=== PATIENT | female | born 1960 | race Caucasian/White ===

== ENCOUNTER 2020-04-22 12:33 | Outpatient (REF) | payer OTHER, SELFPAY | END 2020-04-22 12:34 | disposition home or self-care (01) | LOC: HO.HAP 12:33 | PROVIDERS: Visit Provider Internal Medicine | DX: H90.3 Sensorineural hearing loss, bilateral (principal); Z97.4 Presence of external hearing-aid | CPT/HCPCS: V5160; V5261; V5264 ==

== ENCOUNTER 2020-05-06 12:37 | Outpatient (REF) | payer OTHER, SELFPAY ==
--- NOTE | 2020-05-08 15:19 | MHC.AU.P13 ---
Hearing Instrument Follow-Up- Binaural Date of Visit: 05/06/20 Right Ear: Mid Level Project Manager: Phonak Model: FreeWavzjesus M70-AK Serial Number: [id number] Warranty: 07/09/2023 Battery Size: Rechargeable Type of Mold: Standard halina mold Left Ear: Mid Level Project Manager: Phonak Model: Bolero M70-AK Serial Number: [id number] Warranty: 07/09/2023 Battery Size: Rechargeable Type of Mold: Standard halina mold Follow-Up Summary: Hearing aid follow-up. Reviewed beto use and how to save programs. She notes that she hears too much background noise. Increased noise reduction in the automatic settings. and decreased gain by 3 dB from 250-750 Hz bilaterally. She reported comfortable sound quality and understanding of all topics covered. Recommendations: Recommendations: Hearing instrument maintenance in 6 months, or sooner if needed. Please contact our clinic with any questions or concerns. Diagnosis Code(s): Primary Diagnosis: H90.3 Bilateral Sensorineural Hearing Loss Services Performed: Assorted Hearing Aid Service: No Charge Visit Signature: Provider: Savannah De La Garza, [facility]
== END 2020-05-06 12:38 | disposition home or self-care (01) ==
LOC: HO.HAP 12:37
PROVIDERS: Visit Provider Internal Medicine
DX: Z13.89 Encounter for screening for other disorder (principal)
CPT/HCPCS: 92700

== ENCOUNTER 2024-11-22 09:59 | Outpatient (AMB) | payer OTHER, SELFPAY ==
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
[2024-11-22 10:38] VITALS: BP 114/70; PULSE 79; BMI 35.4
--- OUTSIDE RECORDS SUMMARY | 2024-11-22 11:05 | XMS_ITS | Encounter Summary ---
Author Organization [facility] Address [address] [place] [address] Care Team Providers Care Ex Chef Name Role Phone Anali Mccabe OILER AND GREASER Primary Care Provider [phone] Encounter Details Date Type Department Care Team (Late st Contact Info) Description 11/19/2024 6:30 AM EDT [facility] Home Care / [facility] Home Visit [facility] [address] [place] [phone] Tomasa Patel Social History Tobacco Use Types Packs/Day Years Used Date Smoking Tobacco: Never Smokeless Tobacco: Never Comments:Ex-smoker Alcohol Use Standard Drinks/Week Comments No 0 (1 standard drink = 0.6 oz pur e alcohol) Comments No Sex and Gender Information Value Date Recorded Sex Assigned at Not on file Legal Sex Female 6:14 PM EST Gender Identity Not on file Sexual Orientation Not on file documented as of this encounter Plan of Treatment Upcoming Encounters Date Type Department Care Team (Late st Contact Info) Description 11/23/2024 7:00 AM EDT P[facility] Home Care / PACE Home Visit Arianne [facility] [address] [place] [phone] Tomasa Patel 11/24/2024 6:00 AM EDT P[facility] Home Care / PACE Home Visit A[facility]ne [facility] [address] [place] [phone] Mendy Hodge 11/24/2024 10:00 AM EDT Office Visit [facility] [address] [place] [phone] Anali Mccabe, ROC[facility] [address] [address] 11/25/2024 6:30 AM EDT P[facility] Home Care / PACE Home Visit Arianne [facility] [address] [place] [phone] Feroz Horner 11/26/2024 6:30 AM EDT [facility] Home Care / PACE Home Visit [facility] [address] [place] [phone] Teodora Ricks 11/27/2024 9:00 AM EDT [facility] Home Care / PACE Home Visit [facility] [address] [place] [address] Nurse, Tomasa 11/28/2024 7:00 AM EDT [facility] Home Care / PACE Home Visit Arianne [facility] [address] [place] [phone] Nurse, Tomasa 11/29/2024 7:00 AM EDT [facility] Home Care / P[facility] Home Visit [facility]ne [facility] [address] [place] [phone] Nurse, Tomasa 11/30/2024 7:00 AM EDT [facility] Home [facility] / [facility] [address] [place] [phone] Nurse, Tomasa 12/01/2024 6:00 AM EDT [facility] Home [facility] / [facility] [address] [place] [phone] Mendy Hodge 12/02/2024 6:30 AM EDT [facility] Home [facility] [address] [place] [phone] Nurse, Tomasa 12/03/2024 6:30 AM EDT [facility] Home [facility] / [facility] [address] [place] [address] Nurse, Tomasa 12/04/2024 9:00 AM EDT [facility] Home [facility] / [facility] [address] [place] [phone] Nurse, Tomasa 12/05/2024 7:00 AM EDT [facility] Home [facility] / [facility] [address] [place] [phone] Nurse, Tomasa 12/06/2024 7:00 AM EDT [facility] Home [facility] / [facility] [address] [place] [phone] Nurse, Tomasa 12/07/2024 7:00 AM EDT [facility] Home [facility] / [facility] [address] [place] [phone] Nurse, Tomasa 12/08/2024 6:00 AM EDT [facility] Home [facility] / [facility] [address] [place] [phone] Mendy Hodge 12/09/2024 6:30 AM EDT [facility] Home [facility] / [facility] [address] [place] [phone] Feroz Horner 12/10/2024 6:30 AM EDT [facility] Home [facility] / [facility] [address] [place] [phone] Teodora Ricks 12/11/2024 9:00 AM EDT [facility] Home [facility] / [facility] [address] [place] [phone] Nurse, Tomasa 12/12/2024 7:00 AM EDT [facility] Home [facility] / [facility] [address] [place] [phone] Nurse, Tomasa 12/13/2024 7:00 AM EDT [facility] Home [facility] / [facility] [address] [place] [phone] Nurse, Tomasa 12/14/2024 7:00 AM EDT [facility] Home [facility] / [facility] [address] [place] [phone] Feroz Horner 12/15/2024 6:00 AM EDT [facility] Home [facility] / [facility] [place] [facility] [address] [place] [phone] Mendy Hodge 12/16/2024 6:30 AM EDT [facility] / [facility] [address] [place] [phone] Nurse, Tomasa 12/17/2024 6:30 AM EDT [facility] Home [facility] / [facility] [place] [facility] [address] [place] [phone] Nurse, Tomasa 12/18/2024 9:00 AM EDT P[facility] Home Care / [facility] [place] [facility] [address] [place] [phone] Nurse, Tomasa 12/19/2024 7:00 AM EDT [facility] Home [facility] / [facility] [address] [place] [phone] Nurse, Tomasa 12/20/2024 7:00 AM EDT [facility] Home [facility] / [facility] [address] [place] [phone] Nurse, Tomasa 12/20/2024 10:00 AM EDT Office Visit [facility] - [place] [address] [phone] Talia Ang NP [address] [address] 12/21/2024 7:00 AM EDT P[facility] Home Care / PACE Home Visit [facility] [address] [place] [phone] Nurse, Tomasa 12/22/2024 6:00 AM EDT P[facility] Home Care / P[facility] Home Visit [facility] [address] [place] [phone] Mendy Hodge 12/23/2024 6:30 AM EDT P[facility] Home Care / PACE Home Visit [facility] [address] [place] [phone] Feroz Horner 01/23/2025 11:00 AM EDT Appointment [facility] Ultrasound [address] [place] [address] 03/05/2025 11:00 AM EDT [facility]ACE External Visit [place]ne [place] [place] [address] [place] [phone] documented as of this encounter Visit Diagnoses Not on filedocumented in this encounter Care Teams Ex Chef Relationship Specialty Start Date End Date Anali Mccabe NP [address] [facility] [address] [place] [address] PCP - General Family Medicine 05/26/24 documented as of this encounter
--- OUTSIDE RECORDS SUMMARY | 2024-11-22 11:05 | XMS_ITS ---
Author Organization [facility] Address [address] [place] [address] Phone Care Team Providers Care Organization Development Consultant Name Role Phone Anali Mccabe ORDER CALLER Primary Care Provider [phone] Program of All-Inclusive Care for the Elderly Status:Enrolled (Active) Start date:06/18/2018 Enrollment date:06/18/2018 Related social drivers of health:Housing Instability, Financial Risk, Transportation, Social Isolation, Food Risk Related service episodes:[facility] (Active) Overview This episode will track PACE documentation. Case Team Name Relationship Phone Anali Mccabe ORDER CALLER Nurse Practitioner Mitzy Sadler Recreational Therapist Gi Austin RN Advertising Clerk uLanne Roach TELEVISION INSTALLER Radiosonde Operator Tien Ybarra RD Dietitian [place] PT Physical Therapist Zachery Pereira [place] Banquet Director Marcelino Davies LCSW Tiler Monse Rojas Tiler Brody Jarquin Spiritual Care Juani Bradford OT Occupational Therapist Laurie Palumbo RN Registered Nurse Madhuri Denis MD Primary Care Provider Continued Care and Services Coordination
--- OUTSIDE RECORDS SUMMARY | 2024-11-22 11:05 | XMS_ITS ---
Author Organization [facility] Address [address] [place] [address] Phone Care Team Providers Care Parcel Wrapper Name Role Phone Anali Mccabe MANAGER OF OPERATIONS Primary Care Provider [phone] [facility] Status:Enrolled (Active) Start date:09/16/2024 Related program episode:Program of [facility]-Inclusive Care for the Elderly (Active) Case Team Name Relationship Phone Anali Mccabe MANAGER OF OPERATIONS Nurse Practitioner(Responsibl e Staff) [phone] Continued Care and Services Coordination
--- OUTSIDE RECORDS SUMMARY | 2024-11-22 11:06 | XMS_ITS | Clinical Summary ---
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 10/25/2024 5:47 PM EDT [facility] Platelets 253 130 - 400 K/mcL LAB HEMETOLOGY METHOD 10/25/2024 5:47 PM EDT [facility] MPV 11.2(H) 7.0 - 11.0 FL LAB HEMETOLOGY METHOD 10/25/2024 5:47 PM EDT [facility] NRBC 0.0 <1.0 % LAB HEMETOLOGY METHOD 10/25/2024 5:47 PM [facility] NRBC Absolute 0.00 <0.10 K/mcL LAB HEMETOLOGY METHOD 10/25/2024 5:47 PM [facility] Neutrophils Relative 55.7 % LAB HEMETOLOGY METHOD 10/25/2024 5:47 PM [facility] Lymphocytes Relative 34.2 % LAB HEMETOLOGY METHOD 10/25/2024 5:47 PM [facility] Monocytes Relative 8.0 % LAB HEMETOLOGY METHOD 10/25/2024 5:47 PM [facility] Eosinophils Relative 1.4 % LAB HEMETOLOGY METHOD 10/25/2024 5:47 PM [facility] Basophils Relative 0.5 % LAB HEMETOLOGY METHOD 10/25/2024 5:47 PM [facility] Immature Granulocytes Relative 0.2 % LAB HEMETOLOGY METHOD 10/25/2024 5:47 PM [facility] Neutrophils Absolute 3.48 1.50 - 7.00 K/mcL LAB HEMETOLOGY METHOD 10/25/2024 5:47 PM [facility] Lymphocytes Absolute 2.14 1.00 - 5.00 K/mcL LAB HEMETOLOGY METHOD 10/25/2024 5:47 PM [facility] Monocytes Absolute 0.50 0.20 - 1.00 K/mcL LAB HEMETOLOGY METHOD 10/25/2024 5:47 PM [facility] Eosinophils Absolute 0.09 0.00 - 0.50 K/mcL LAB HEMETOLOGY METHOD 10/25/2024 5:47 PM [facility] Basophils Absolute 0.03 0.00 - 0.20 K/mcL LAB HEMETOLOGY METHOD 10/25/2024 5:47 PM [facility] Immature Granulocytes Absolute 0.01 0.00 - 0.03 K/mcL LAB HEMETOLOGY METHOD 10/25/2024 5:47 PM EDT [facility] Blood Venous blood specimen / Unknown Venipuncture / Unknown 10/25/2024 12:18 PM EDT 10/25/2024 12:18 PM EDT us Anali Mccabe RIGGING WORKER LAB BLOOD ORDERABLES Final Re sult [facility] [address] [place] [address], * Vitamin B3 (10/25/2024 12:18 PM EDT) Nicotinic Acid None Detected ng/mL 11/03/2024 11:32 AM EDT [facility] Comment: Reporting Limit: 10 ng/mL Synonym(s): Niacor(R); Niaspan(R); Slo-Niacin(R); Vitamin B3 Nicotinic acid occurs naturally in plants and animals and is also added to many foods as a vitamin supplement. Due to the large variability in the metabolism of nicotinic acid, the dosing preparation used (immediate-release vs. extended-release), and the mg doses used, the serum concentrations may range from less than 10 ng/mL to about [address]40 ng/mL. After oral administration of an immediate-release tablet, peak plasma concentrations are achieved in 30 to 60 min; after oral administration of an extended-release capsule, peak plasma concentrations occur in 4 to 5 hours. The plasma half-life of nicotinic acid is about 1 hour. In one study, fasting plasma concentrations were reported to be approximately 10 ng/mL. In another study it was reported that the administration of a single 1000 mg extended-release tablet resulted in mean nicotinic acid concentrations of less than 50 ng/mL. The administration of multiple oral doses of nicotinic acid (for a total of 2000 mg) resulted in the following mean peak nicotinic acid plasma concentrations: 25 mg every 10 min. for 80 doses (over 13 hours): 1100 ng/mL 50 mg every 10 min. for 40 doses (over 6.5 hours): 5400 ng/mL 100 mg every 10 min. for 20 doses (over 3 hours): 97142 ng/mL This test should be considered as a therapeutic drug monitoring/toxicological test associated with niacin (Vitamin B3) supplementation. Care should be taken in the use of this test for basal Vitamin B3 determination. The supplied reference comment does not reflect normal, endogenous Vitamin B3 concentrations. Analysis by High Performance Liquid Chromatography/ Tandem Mass Spectrometry (LC-MS/MS) Nicotinamide 47 ng/mL 11/03/2024 11:32 AM [facility] Comment: Reporting Limit: 10 ng/mL Synonym(s): Niacinamide; Vitamin B3; Niacin(R) Nicotinamide is a metabolite of nicotinic acid, is the common form of niacin included in vitamin preparations and is also added to many foods as a vitamin supplement. Due to the large variability in the metabolism of nicotinic acid, plasma concentrations of this metabolite also are variable. In one study, fasting plasma concentrations were reported to be approximately 40 ng/mL. In another study it was reported that the administration of a single 1000 mg extended-release tablet of nicotinic acid resulted in a mean peak Nicotinamide concentration of 400 ng/mL between 5 and 10 hours post dose, decreasing to about 100 ng/mL by 16 hours post dose. The administration of multiple oral doses of nicotinic acid (for a total of 2000 mg) resulted in the following mean peak Nicotinamide plasma concentrations: 25 mg every 10 min. for 80 doses (over 13 hours): 1300 ng/mL 50 mg every 10 min. for 40 doses (over 6.5 hours): 2300 ng/mL 100 mg every 10 min. for 20 doses (over 3 hours): 2000 ng/mL This test should be considered as a therapeutic drug monitoring/toxicological test associated with niacin (Vitamin B3) supplementation. Care should be taken in the use of this test for basal Vitamin B3 determination. The supplied reference comment does not reflect normal, endogenous Vitamin B3 concentrations. Analysis by High Performance Liquid Chromatography/ Tandem Mass Spectrometry (LC-MS/MS) Nicotinuric Acid None Detected ng/mL 11/03/2024 11:32 AM [facility] Comment: Reporting Limit: 10 ng/mL Synonym(s): Niacin Metabolite Nicotinuric acid is a metabolite of nicotinic acid and nicotinamide. Due to the large variability in the metabolism of nicotinic acid and nicotinamide, plasma concentrations of this metabolite also are variable. In one study it was reported that the administration of a single 1000 mg extended-release tablet of nicotinic acid resulted in a mean peak nicotinuric acid concentration of over 1000 ng/mL within 2 hours post dose, decreasing to less than 200 ng/mL by 6 hours and less than 50 ng/mL by 12 hours post dose. The administration of multiple oral doses of nicotinic acid (for a total of 2000 mg) resulted in the following mean peak nicotinuric acid plasma concentrations: 25 mg every 10 min. for 80 doses (over 13 hours): 950 ng/mL 50 mg every 10 min. for 40 doses (over 6.5 hours): 2300 ng/mL 100 mg every 10 min. for 20 doses (over 3 hours): 5100 ng/mL This test should be considered as a therapeutic drug monitoring/toxicological test associated with niacin (Vitamin B3) supplementation. Care should be taken in the use of this test for basal Vitamin B3 determination. The supplied reference comment does not reflect normal, endogenous Vitamin B3 concentrations. Analysis by High Performance Liquid Chromatography/ Tandem Mass Spectrometry (LC-MS/MS) This test was developed and its performance characteristics determined by [email or web address]. ??It has not been cleared or approved by the [place] Food and Drug Administration. Digital data review may have taken place remotely by qualified [facility] staff utilizing a secure VPN connection for some or all of the reported results. This is in accordance with and follows CLIA regulations. Testing performed at [email or web address] [employer] [address] [place] [id number] CLIA [id number] Blood Venous blood specimen / Unknown Venipuncture / Unknown 10/25/2024 12:18 PM EDT 10/25/2024 12:18 PM EDT Anali Mccabe RIGGING WORKER LAB BLOOD ORDERABLES Final Re sult [facility] [address] [place] [address] * Vitamin B1 (10/25/2024 12:18 PM EDT) [facility] Vitamin B1 Whole Blood 70 38 - 122 ug/L 10/31/2024 12:51 PM EDT [facility] Comment: This test was developed and the performance characteristics determined by [facility]. It has not been cleared or approved by the FDA. The laboratory is regulated under CLIA as qualified to perform high-complexity testing. This test is used for patient testing purposes. It should not be regarded as investigational or for research. Test performed at [facility], [address] , [place], [place] ??[address] ? [phone] Amanda Mcnulty MD, PhD - Stock Preparation Operator Blood Venous blood specimen / Unknown Venipuncture / Unknown 10/25/2024 12:18 PM EDT 10/25/2024 12:18 PM EDT us Anali Mccabe RIGGING WORKER LAB BLOOD ORDERABLES Final Re sult [facility] [address] [place] [address] * (ABNORMAL) Basic metabolic panel (10/25/2024 12:18 PM EDT) Sodium 137 133 - 145 mmol/L LAB CHEMISTRY METHOD 10/25/2024 6:19 PM [facility] Potassium 4.3 3.5 - 5.5 mmol/L LAB CHEMISTRY METHOD 10/25/2024 6:19 PM [facility] Chloride 104 96 - 110 mmol/L LAB CHEMISTRY METHOD 10/25/2024 6:19 PM [facility] CO2 31 21 - 32 mmol/L LAB CHEMISTRY METHOD 10/25/2024 6:19 PM [facility] Anion Gap 2(L) 3 - 11 LAB CHEMISTRY METHOD 10/25/2024 6:19 PM [facility] Glucose 80 70 - 100 mg/dL LAB CHEMISTRY METHOD 10/25/2024 6:19 PM [facility] BUN 12 5 - 25 mg/dL LAB CHEMISTRY METHOD 10/25/2024 6:19 PM [facility] Creatinine 0.63 0.50 - 1.10 mg/dL LAB CHEMISTRY METHOD 10/25/2024 6:19 PM EDT [facility] eGFR 98 >=60 mL/min/1. 73m2 LAB CHEMISTRY METHOD 10/25/2024 6:19 PM EDT [facility] Comment:Calculation based on the??Chronic Kidney Disease Epidemiology Collaboration (CKD-EPI) equation refit??without adjustment for race. BUN/Creatinine Ratio 19.0 LAB CHEMISTRY METHOD 10/25/2024 6:19 PM EDT [facility] Calcium 9.1 8.5 - 10.5 mg/dL LAB CHEMISTRY METHOD 10/25/2024 6:19 PM EDT [facility] Blood Venous blood specimen / Unknown Venipuncture / Unknown 10/25/2024 12:18 PM EDT 10/25/2024 12:18 PM EDT us Anali Mccabe RIGGING WORKER LAB BLOOD ORDERABLES Final Re sult [facility] [address] [place] [address], [place] [phone] * BD Bone Density DXA Axial Skeleton (08/09/2024 1:05 PM EST) Anatomical Region Laterality Modality Wrist, Hip, L-spine Bone Densito metry 08/09/2024 4:54 PM EST Impressions 08/09/2024 4:56 PM EST Osteopenia. ? [id number] -------- FINAL REPORT -------- Dictated By: Adele Olivares Dictated Date: 08/09/2024 16:54 ET Assigned Physician: Adele Olivares Reviewed and Electronically Signed By: Adele Olivares Signed Date: 08/09/2024 16:56 ET Workstation ID: [id number] Transcribed By: Self Edit Transcribed Date: 08/09/2024 16:54 ET Narrative 08/09/2024 4:56 PM EST History: Low estrogen state due to menopause. Comparison: 03/15/19 Findings: Bone densitometry is performed utilizing dual energy x-ray absorptiometry (DXA) in the Lunar Prodigy unit. The lumbar spine and proximal femora are evaluated in the AP projection. The FRAX questionaire was completed. The results indicate low bone mass (osteopenia), with a lumbar spine T-score of -1.1. The Z score is -0.4, indicating bone mineral density within the range of normal for age. There has been a statistically significant decrease in bone mineral density in the spine since the previous study. ??The detailed DEXA report will be mailed to the referring physician's office. [employer]em[employer] FRAX: 10-year Probability of Fracture: Major Osteoporotic 4.1 percent ??Hip 0.3 percent. Procedure Note Adele Olivares MD - 08/09/2024 History: Low estrogen state due to menopause. Comparison: 03/15/19 Findings: Bone densitometry is performed utilizing dual energy x-ray absorptiometry(DXA) in the [employer] Prodigy unit. The lumbar spine and proximal femora areevaluated in the AP projection. The FRAX questionaire was completed. The results indicate low bone mass (osteopenia), with a lumbar spineT-score of - 1.1. The Z score is -0.4, indicating bone mineral densitywithin the range of normal for age. There has been a statistically significant decrease in bone mineraldensity in the spine since the previous study. The detailed DEXA reportwill be mailed to the referring physician's office. [employer] FRAX: 10-year Probability of Fracture: Major Osteoporotic 4.1percent Hip 0.3 percent. IMPRESSION: Osteopenia. [id number] -------- FINAL REPORT -------- Dictated By: Adele Olivares Dictated Date: 08/09/2024 16:54 ET Assigned Physician: Adele Olivares Reviewed and Electronically Signed By: Adele Olivares Signed Date: 08/09/2024 16:56 ET Workstation ID: [id number] Transcribed By: Self Edit Transcribed Date: 08/09/2024 16:54 ET Anali Mccabe NP IMG DXA PROCEDURES Final Resu lt * (ABNORMAL) Lipid panel (06/13/2024) LDL/HDL Ratio 5 <=5 Triglycerides 198(A) <=150 mg/dL Cholesterol 143 <=200 mg/dL HDL 30(A) >=50 mg/dL LDL Cholesterol 83 <=100 mg/dL Blood Venous blood specimen / Unknown us Historical Provider MD LAB BLOOD ORDERABLES Radha l Result * MG Mammo Digital Screening w Kee bilat (06/06/2024 11:25 AM EST) Anatomical Region Laterality Modality Breast Bilateral Mammography 06/06/2024 11:3 6 AM EST Impressions 06/06/2024 11:40 AM EST No mammographic evidence of malignancy. A negative mammogram in the presence of a clinically suspicious palpable abnormality does not preclude the possibility of malignancy or alter the indications for biopsy. PQRI CPT II 3342F Code 48259, 88407 PQRI 225 CPT II 7025F ?? TISSUE DENSITY: The breasts are almost entirely fatty. (BI-RADS ??Category A) IMPRESSION: Benign. BI-RADS CATEGORY: 2 - BENIGN RECOMMENDATION: Screening bilateral mammogram is recommended in 1 year. Mammo Location: [facility], [address] [place] [address] -------- FINAL REPORT -------- Dictated By: Kareem Saini Dictated Date: 06/06/2024 11:36 ET Assigned Physician: Kareem Saini Reviewed and Electronically Signed By: Kareem Saini Signed Date: 06/06/2024 11:40 ET Workstation ID: [id number] Transcribed By: Self Edit Transcribed Date: 06/06/2024 11:36 ET Narrative 06/06/2024 11:40 AM EST CLINICAL: The patient is a 63 years Female presenting for routine screening mammography. COMPARISON: Most recently 12/22/2022 and most remotely a 2018. ?? TECHNIQUE: Full-field digital mammography of the breasts bilaterally consisting of tomosynthesis in MLO and CC projection is performed in the Smart[employer]de 2000-D unit. ??Computer aided detection utilizing the iCAD system was utilized. FINDINGS: The breasts are again seen to be largely fatty replaced. ??Bilateral benign punctate calcifications, some of which are dermal, are again seen. ??Vascular calcifications are again noted. ??There is no suspicious cluster of microcalcifications, mass, or area of architectural distortion. There is no skin thickening or nipple retraction. Procedure Note Kareem Saini MD - 06/06/2024 CLINICAL: The patient is a 63 years Female presenting for routinescreening mammography. COMPARISON: Most recently 12/22/2022 and most remotely a 2018. TECHNIQUE: Full-field digital mammography of the breasts bilaterallyconsisting of tomosynthesis in MLO and CC projection is performed in theHealth: [employer] 2000-D unit. Computer aided detection utilizing the [employer]amis Wave Powerystem was utilized. FINDINGS: The breasts are again seen to be largely fatty replaced.Bilateral benign punctate calcifications, some of which are dermal, areagain seen. Vascular calcifications are again noted. There is nosuspicious cluster of microcalcifications, mass, or area of architecturaldistortion. There is no skin thickening or nipple retraction. IMPRESSION: No mammographic evidence of malignancy. A negative mammogram in the presence of a clinically suspicious palpableabnormality does not preclude the possibility of malignancy or alter theindications for biopsy. PQRI CPT II 3342F Code 09210, 43962 PQRI 225 CPT II 7025F TISSUE DENSITY: The breasts are almost entirely fatty. (BI-RADS CategoryA) IMPRESSION: Benign. BI-RADS CATEGORY: 2 - BENIGN RECOMMENDATION: Screening bilateral mammogram is recommended in 1 year. Mammo Location: [facility], [address] [place] [id number] -------- FINAL REPORT -------- Dictated By: Kareem Saini Dictated Date: 06/06/2024 11:36 ET Assigned Physician: Kareem Saini Reviewed and Electronically Signed By: Kareem Saini Signed Date: 06/06/2024 11:40 ET Workstation ID: [id number] Transcribed By: Self Edit Transcribed Date: 06/06/2024 11:36 ET us Self Referral Sppl IMG BI PROCEDURES Final Resul t from Last 3 Months or Most Recently Relevant to Health Maintenance Insurance [employer] * Guarantor: PACE Account Type Relation to Patient Date of Phone Billing Address [place] [address] [facility] Advance Directives Documents on File Type Date Recorded Patient Calker Expl anation Advance Directives and Living Will 08/10/2024 2:11 PM ADV DIR-Healthcare Proxy [id number] Advance Directives and Living Will 08/10/2024 2:11 PM ADV DIR-MOLST [id number] * Full Code - Confirmed (Latest Code Status on File) Date Activated Date Inactivated Comments 09/08/2024 9:22 AM This code stat us was ascertained in the following way: Code status discussion: per living will or healthcare instructions To update the patient's code status, place a code status order. Do not modify or discontinue any currently active code status orders. Care Teams It Support Manager Relationship Specialty Start Date End Date Anali Mccabe NP [address] [address] [place] [address] PCP - General Family Medicine 05/26/24
--- OUTSIDE RECORDS SUMMARY | 2024-11-22 11:06 | XMS_ITS | Encounter Summary ---
Author Organization [facility] Address [address] [place] [address] Care Team Providers Care Veneer Patcher Name Role Phone Anali Mccabe LEGAL INTERN Primary Care Provider [phone] Encounter Details Date Type Department Care Team (Late st Contact Info) Description 11/21/2024 7:00 AM EDT PACE Home Care / PACE Home Visit Arianne [facility] [address] [place] [phone] Tomasa Patel Social History Tobacco Use [...] In [facility] A[facility] Services [address] [place] [address] Tomasa Patel 11/24/2024 6:00 AM EDT PACE Home Care / PACE Home Visit Arianne [facility] [place] [facility] [address] [place] [phone] Mendy Hodge 11/24/2024 10:00 AM EDT Office Visit [facility] [place] [facility] [address] [place] [address] Anali Mccabe, ROCIO [address] [address] 11/25/2024 6:30 AM EDT PACE Home Care / PACE Home Visit Arianne [facility]ER[facility] [place] [facility] [address] [place] [address] Feroz Horner 11/26/2024 6:30 AM EDT PACE Home Care / PACE Home Visit Arianne [facility] [place] [facility] [address] [place] [address] Teodora Ricks 11/27/2024 9:00 AM EDT PACE Home Care / PACE Home Visit Arianne [facility] [place] [facility] [address] [place] [address] Nurse, Tomasa 11/28/2024 7:00 AM EDT PACE Home Care / PACE Home Visit Arianne LERMA [place] [facility] [address] [place] [phone] Nurse, Tomasa 11/29/2024 7:00 AM EDT PACE Home Care / PACE Home Visit Arianne LERMA [place] [facility] [address] [place] [phone] Nurse, Tomasa 11/30/2024 7:00 AM EDT PACE Home Care / [facility] [place] [facility] [address] [place] [phone] Nurse, Tomasa 12/01/2024 6:00 AM EDT PACE Home Care / [facility] Home Visit [facility] [place] [facility] [address] [place] [address] Mendy Hodge 12/02/2024 6:30 AM EDT [facility] Home [facility] [place] [facility] [address] [place] [address] Nurse, Tomasa 12/03/2024 6:30 AM EDT P[facility] Home Care / [facility] Visit [facility] [place] [facility] [address] [place] [address] Nurse, Tomasa 12/04/2024 9:00 AM EDT P[facility] Home Care / [facility] [place] [facility] [address] [place] [phone] Nurse, Tomasa 12/05/2024 7:00 AM EDT P[facility] Home Care / [facility] Visit [facility] [place] [facility] [address] [place] [phone] Nurse, Tomasa 12/06/2024 7:00 AM EDT PACE Home Care / [facility] Visit [facility] [place] [facility] [address] [place] [phone] Nurse, Tomasa 12/07/2024 7:00 AM EDT PACE Home Care / [facility] Visit [facility] [place] [facility] [address] [place] [phone] Nurse, Tomasa 12/08/2024 6:00 AM EDT PACE Home Care / [facility] [place] [facility] [address] [place] [phone] Mendy Hodge 12/09/2024 6:30 AM EDT P[facility] Home Care / [facility] [place] [facility] [address] [place] [phone] Feroz Horner 12/10/2024 6:30 AM EDT PACE Home Care / [facility] [place] [facility] [address] [place] [phone] Teodora Ricks 12/11/2024 9:00 AM EDT PACE Home Care / [facility] Home Visit [facility] [place] [facility] [address] [place] [address] Nurse, Tomasa 12/12/2024 7:00 AM EDT P[facility] Home Care / [facility] Home Visit [facility] [place] [facility] [address] [place] [address] Nurse, Tomasa 12/13/2024 7:00 AM EDT P[facility] Home Care / [facility] [place] [facility] [address] [place] [phone] Nurse, Tomasa 12/14/2024 7:00 AM EDT PACE Home Care / [facility] Home Visit [facility] [place] [facility] [address] [place] [phone] Feroz Horner 12/15/2024 6:00 AM EDT PACE Home Care / [facility] Home Visit [facility] [place] [facility] [address] [place] [phone] Mendy Hodge 12/16/2024 6:30 AM EDT PACE Home Care / [facility] Home Visit [facility] [place] [facility] [address] [place] [phone] Nurse, Tomasa 12/17/2024 6:30 AM EDT PACE Home Care / [facility] Visit [facility] [place] [facility] [address] [place] [phone] Nurse, Tomasa 12/18/2024 9:00 AM EDT PACE Home Care / [facility] Home Visit [facility] [place] [facility] [address] [place] [phone] Nurse, Tomasa 12/19/2024 7:00 AM EDT PACE Home Care / [facility] Home Visit [facility] [place] [facility] [address] [place] [phone] Nurse, Tomasa 12/20/2024 7:00 AM EDT P[facility] Home Care / [facility] Home [facility] [place] [facility] [address] [place] [address] Nurse, Tomasa 12/20/2024 10:00 AM EDT Office Visit [facility] - [place] [address] [address] Talia Ang NP [address] [address] 12/21/2024 7:00 AM EDT PACE Home Care / PACE Home Visit Arianne [facility]MA [place] [facility] [address] [place] [address] Nurse, Tomasa 12/22/2024 6:00 AM EDT PACE Home Care / PACE Home Visit Arianne [facility] [place] [facility] [address] [place] [address] Mendy Hodge 12/23/2024 6:30 AM EDT PACE Home Care / PACE Home Visit Arianne [facility] [place] [facility] [address] [place] [address] Feroz Horner 01/23/2025 11:00 AM EDT Appointment [facility] Ultrasound [address] [place] [address] 03/05/2025 11:00 AM EDT PACE External Visit Arianne LERMA [place] [address] [place] [address] documented as of this encounter Visit Diagnoses Not on filedocumented in this encounter Care Teams Veneer Patcher Relationship Specialty Start Date End Date Anali Mccabe NP 200 [facility] 1 [place] [address] PCP - General Family Medicine 05/26/24 documented as of this encounter
--- OUTSIDE RECORDS SUMMARY | 2024-11-22 11:06 | XMS_ITS | Patient Health Record ---
Author Organization [facility] Address [address] [place] [address] Care Team Providers Care Supervisory Lifeguard Name Role Phone Maggie Salas Unavailable [phone] Reason For Referral No Information Medications Medication SIG (Take, Route, Fr equency, Duration) Notes Start Date End Date Status Zoloft 50 mg 0.5TAB ORAL daily for -3 [facility] 12/25/2013 Active RisperDAL 4MG ORAL for -3 [facility] 12/25/2013 Act sakshi Vitamin D3 1000 IU ORAL daily for -3 [facility] 12/25/2013 Active Wellbutrin XL 450MG ORAL daily for -3 [facility] 12/25/2013 Active Problems Problem Type SNOMED Code ICD Code Onset Dates Problem Status W/U Status Risk Notes Problem Submucous leiomyoma of uterus (09725543) Submucous leiomyoma of uterus (218.0) Active confirmed Diag Problem Depressive disorder (43723929) Depressive disorder, not elsewhere classified (311) Active confirmed Major Problem Excessive and frequent menstruation (241599305) Excessive or frequent menstruation (626.2) Active confirmed Diag Problem Irregular menstrual cycle (59973120) Irregular menstrual cycle (626.4) Active confirmed Diag Problem Postmenopausal bleeding (02538005) Postmenopausal bleeding (627.1) Active confirmed Diag Plan Of Treatment No Information Insurance Providers Payer Name Payer Address Payer Phone Subscriber Number Group Number Insured Name Patient Relationship to Insured Coverage Start Date Coverage End Date MEDICARE [address] [place] [id number] RAMON HENSON Self - patient is the insured
--- OUTSIDE RECORDS SUMMARY | 2024-11-22 11:06 | XMS_ITS | Encounter Summary ---
Author Organization [facility] Address [address] [place] [address] Care Team Providers Care Radiology Assistant Name Role Phone Anali Mccabe ADMINISTRATIVE SERVICES OFFICER Primary Care Provider [phone] Encounter Details Date Type Department Care Team (Late st Contact Info) Description 11/18/2024 6:30 AM EDT PACE Home Care / PACE Home Visit Arianne [facility]ERMA [facility] [address] [place] [phone] Tomasa Patel Social History Tobacco Use [...] [place] [facility] [address] [place] [phone] Tomasa Patel 11/24/2024 6:00 AM EDT PACE Home Care / PACE Home Visit Arianne [facility]ERMA [place] [facility] [address] [place] [phone] Mendy Hodge 11/24/2024 10:00 AM EDT Office Visit [facility] [place] [facility] [address] [place] [address] Anali Mccabe, ROCIO [address] [address] 11/25/2024 6:30 AM EDT PACE Home Care / PACE Home Visit Arianne [facility] [place] [facility] [address] [place] [address] Feroz Horner 11/26/2024 6:30 AM EDT PACE Home Care / PACE Home Visit Arianne [facility] [place] [facility] [address] [place] [address] Teodora Ricks 11/27/2024 9:00 AM EDT PACE Home Care / PACE Home Visit Arianne [facility] [place] [facility] [address] [place] [address] Nurse, Tomasa 11/28/2024 7:00 AM EDT PACE Home Care / PACE Home Visit Arianne [facility] [place] [facility] [address] [place] [phone] Nurse, Tomasa 11/29/2024 7:00 AM EDT PACE Home Care / PACE Home Visit Arianne LERMA [place] [facility] [address] [place] [phone] Nurse, Tomasa 11/30/2024 7:00 AM EDT PACE Home Care / [facility] Home [facility] [place] [facility] [address] [place] [phone] Nurse, Tomasa 12/01/2024 6:00 AM EDT PACE Home Care / [facility] Home Visit [facility] [place] [facility] [address] [place] [address] Mendy Hodge 12/02/2024 6:30 AM EDT P[facility] Home Care / [facility] [place] [facility] [address] [place] [address] Nurse, Tomasa 12/03/2024 6:30 AM EDT PACE Home Care / [facility] Home Visit [facility] [place] [facility] [address] [place] [address] Nurse, Tomasa 12/04/2024 9:00 AM EDT PACE Home Care / [facility] Home Visit [facility] [place] [facility] [address] [place] [phone] Nurse, Tomasa 12/05/2024 7:00 AM EDT PACE Home Care / [facility] Home Visit [facility] [place] [facility] [address] [place] [phone] Nurse, Tomasa 12/06/2024 7:00 AM EDT PACE Home Care / [facility] Home Visit [facility] [place] [facility] [address] [place] [phone] Nurse, Tomasa 12/07/2024 7:00 AM EDT PACE Home Care / [facility] Visit [facility] [place] [facility] [address] [place] [phone] Nurse, Tomasa 12/08/2024 6:00 AM EDT PACE Home Care / [facility] Home Visit [facility] [place] [facility] [address] [place] [phone] Mendy Hodge 12/09/2024 6:30 AM EDT PACE Home Care / [facility] Home Visit [facility] [place] [facility] [address] [place] [phone] Feroz Horner 12/10/2024 6:30 AM EDT PACE Home Care / [facility] Visit [facility] [place] [facility] [address] [place] [phone] Teodora Ricks 12/11/2024 9:00 AM EDT PACE Home Care / [facility] Home Visit [facility] [place] [facility] [address] [place] [address] Nurse, Tomasa 12/12/2024 7:00 AM EDT PACE Home Care / [facility] Home Visit [facility] [place] [facility] [address] [place] [address] Nurse, Tomasa 12/13/2024 7:00 AM EDT PACE Home Care / [facility] Home Visit [facility] [place] [facility] [address] [place] [phone] Nurse, Tomasa 12/14/2024 7:00 AM EDT PACE Home Care / [facility] Home Visit [facility] [place] [facility] [address] [place] [phone] Feroz Horner 12/15/2024 6:00 AM EDT PACE Home Care / [facility] Home Visit [facility] [place] [facility] [address] [place] [phone] Mendy Hodge 12/16/2024 6:30 AM EDT PACE Home Care / [facility] Home Visit [facility] [place] [facility] [address] [place] [phone] Nurse, Tomasa 12/17/2024 6:30 AM EDT PACE Home Care / [facility] Home Visit [facility] [place] [facility] [address] [place] [phone] Nurse, Tomasa 12/18/2024 9:00 AM EDT PACE Home Care / [facility] Home Visit [facility] [place] [facility] [address] [place] [phone] Nurse, Tomasa 12/19/2024 7:00 AM EDT PACE Home Care / [facility] Home Visit [facility] [place] [facility] [address] [place] [phone] Nurse, Tomasa 12/20/2024 7:00 AM EDT PACE Home Care / [facility] Visit [facility] [place] [facility] [address] [place] [address] Nurse, Tomasa 12/20/2024 10:00 AM EDT Office Visit [facility] - [facility] [address] [phone] Talia Ang NP [address] [address] 12/21/2024 7:00 AM EDT PACE Home Care / PACE Home Visit Arianne LERMA [place] [facility] [address] [place] [address] Nurse, Tomasa 12/22/2024 6:00 AM EDT PACE Home Care / PACE Home Visit Arianne [facility] [place] [facility] [address] [place] [address] Mendy Hodge 12/23/2024 6:30 AM EDT PACE Home Care / PACE Home Visit Arianne [facility] [place] [facility] [address] [place] [address] Feroz Horner 01/23/2025 11:00 AM EDT Appointment [facility] Ultrasound [address] [place] [address] 03/05/2025 11:00 AM EDT PACE External Visit Arianne LERMA [place] [address] [place] [address] documented as of this encounter Visit Diagnoses Not on filedocumented in this encounter Care Teams Radiology Assistant Relationship Specialty Start Date End Date Anali Mccabe NP 200 [facility] 1 [place] [address] PCP - General Family Medicine 05/26/24 documented as of this encounter
--- OUTSIDE RECORDS SUMMARY | 2024-11-22 11:06 | XMS_ITS | Encounter Summary ---
Author Organization [facility] Address [address] [place] [address] Care Team Providers Care Editor Publications Name Role Phone Eliot Analileonid Garrido SUPERVISOR CORRESPONDENCE SECTION Primary Care Provider [phone] Encounter Details Date Type Department Care Team (Late st Contact Info) Description 11/17/2024 6:00 AM EDT PACE Home Care / PACE Home Visit Arianne LERMA [facility] [address] [place] [phone] Mendy Hodge Social History Tobacco Use Types Packs/Day Years [...] [place] [facility] [address] [place] [phone] Tomasa Patel 11/24/2024 6:00 AM EDT PACE Home Care / PACE Home Visit Arianne [facility] [place] [facility] [address] [place] [phone] Mendy Hodge 11/24/2024 10:00 AM EDT Office Visit [facility] [place] [facility] [address] [place] [address] Anali Mccabe NP [address] [address] 11/25/2024 6:30 AM EDT PACE Home Care / PACE Home Visit Arianne [facility] [place] [facility] [address] [place] [address] Feroz Horner 11/26/2024 6:30 AM EDT PACE Home Care / PACE Home Visit Arianne [facility] [place] [facility] [address] [place] [phone] Teodora Ricks 11/27/2024 9:00 AM EDT PACE Home Care / PACE Home Visit A[facility]ne [facility] [place] [facility] [address] [place] [address] Nurse, Tomasa 11/28/2024 7:00 AM EDT PACE Home Care / PACE Home Visit [facility]ne [facility] [place] [facility] [address] [place] [phone] Nurse, Tomasa 11/29/2024 7:00 AM EDT PACE Home Care / PACE Home Visit [facility] [place] [facility] [address] [place] [phone] Nurse, Tomasa 11/30/2024 7:00 AM EDT PACE Home Care / PACE Home Visit [facility] [address] [place] [phone] Nurse, Tomasa 12/01/2024 6:00 AM EDT PACE Home Care / [facility] [place] [facility] [address] [place] [phone] Mendy Hodge 12/02/2024 6:30 AM EDT PACE Home Care / [facility] Visit [facility] [address] [place] [phone] Nurse, Tomasa 12/03/2024 6:30 AM EDT PACE Home Care / [facility] Visit [facility] [place] [facility] [address] [place] [phone] Nurse, Tomasa 12/04/2024 9:00 AM EDT PACE Home Care / [facility] Home Visit [facility] [place] [facility] [address] [place] [phone] Nurse, Tomasa 12/05/2024 7:00 AM EDT PACE Home Care / [facility] Home Visit [facility] [place] [facility] [address] [place] [phone] Nurse, Tomasa 12/06/2024 7:00 AM EDT PACE Home Care / [facility] Home Visit [facility] [place] [facility] [address] [place] [phone] Nurse, Tomasa 12/07/2024 7:00 AM EDT PACE Home Care / [facility] Home Visit [facility] [place] [facility] [address] [place] [phone] Nurse, Tomasa 12/08/2024 6:00 AM EDT PACE Home Care / [facility] Home Visit [facility] [place] [facility] [address] [place] [phone] Mendy Hodge 12/09/2024 6:30 AM EDT PACE Home Care / [facility] Home Visit [facility] [place] [facility] [address] [place] [phone] Feroz Horner 12/10/2024 6:30 AM EDT PACE Home Care / [facility] Home Visit [facility] [place] [facility] [address] [place] [phone] Teodora Ricks 12/11/2024 9:00 AM EDT PACE Home Care / [facility] Home Visit [facility] [place] [facility] [address] [place] [address] Nurse, Tomasa 12/12/2024 7:00 AM EDT PACE Home Care / [facility] Home Visit [facility] [place] [facility] [address] [place] [address] Nurse, Tomasa 12/13/2024 7:00 AM EDT PACE Home Care / [facility] Home Visit [facility] [place] [facility] [address] [place] [phone] Nurse, Tomasa 12/14/2024 7:00 AM EDT PACE Home Care / [facility] Home Visit [facility] [place] [facility] [address] [place] [phone] Feroz Horner 12/15/2024 6:00 AM EDT PACE Home Care / [facility] Home Visit [facility] [place] [facility] [address] [place] [phone] Mendy Hodge 12/16/2024 6:30 AM EDT PACE Home Care / [facility] Visit [facility] [place] [facility] [address] [place] [phone] Nurse, Tomasa 12/17/2024 6:30 AM EDT PACE Home Care / [facility] Visit [facility] [place] [facility] [address] [place] [phone] Nurse, Tomasa 12/18/2024 9:00 AM EDT PACE Home Care / [facility] Visit [facility] [place] [facility] [address] [place] [phone] Nurse, Tomasa 12/19/2024 7:00 AM EDT PACE Home Care / [facility] Visit [facility] [place] [facility] [address] [place] [phone] Nurse, Tomasa 12/20/2024 7:00 AM EDT PACE Home Care / [facility] Home Visit [facility] [place] [facility] [address] [place] [address] Nurse, Tomasa 12/20/2024 10:00 AM EDT Office Visit Orthopedic Surgery - [place] [address] [phone] Talia Ang NP [address] [address] 12/21/2024 7:00 AM EDT PACE Home Care / PACE Home Visit [facility]ne [facility] [place] [facility] [address] [place] [address] Nurse, Tomasa 12/22/2024 6:00 AM EDT PACE Home Care / PACE Home Visit A[facility]ne [facility] [place] [facility] [address] [place] [address] Mendy Hodge 12/23/2024 6:30 AM EDT PACE Home Care / PACE Home Visit Arianne [facility] [place] [facility] [address] [place] [address] Feroz Horner 01/23/2025 11:00 AM EDT Appointment [facility] Ultrasound [address] [place] [address] 03/05/2025 11:00 AM EDT PACE External Visit Arianne [facility]ERMA [place] [address] [place] [address] documented as of this encounter Visit Diagnoses Not on filedocumented in this encounter Care Teams Editor Publications Relationship Specialty Start Date End Date Anali Mccabe NP 200 [facility] 1 [place] [address] PCP - General Family Medicine 05/26/24 documented as of this encounter
--- OUTSIDE RECORDS SUMMARY | 2024-11-22 11:06 | XMS_ITS | Encounter Summary ---
Author Organization [facility] Address [address] [place] [address] Care Team Providers Care Fraud Prevention Analyst Name Role Phone Anali Mccabe CHALK EXTRUDING MACHINE OPERATOR Primary Care Provider [phone] Encounter Details Date Type Department Care Team (Late st Contact Info) Description 11/22/2024 7:00 AM EDT PACE Home Care / PACE Home Visit [facility] [place] [facility] [address] [place] [phone] Tomasa Patel Social History Tobacco Use [...] [facility] [address] [place] [address] Tomasa Patel 11/24/2024 6:00 AM EDT PACE Home Care / PACE Home Visit [facility] [place] [facility] [address] [place] [phone] Mendy Hodge 11/24/2024 10:00 AM EDT Office Visit [facility] [place] [facility] [address] [place] [address] Anali Mccabe, ROCIO [address] [address] 11/25/2024 6:30 AM EDT PACE Home Care / PACE Home Visit [facility]ne [facility] [place] [facility] [address] [place] [address] Feroz Horner 11/26/2024 6:30 AM EDT PACE Home Care / PACE Home Visit [facility] [place] [facility] [address] [place] [address] Teodora Ricks 11/27/2024 9:00 AM EDT PACE Home Care / PACE Home Visit [facility] [place] [facility] [address] [place] [address] Nurse, Tomasa 11/28/2024 7:00 AM EDT PACE Home Care / PACE Home Visit Arianne [facility] [place] [facility] [address] [place] [phone] Nurse, Tomasa 11/29/2024 7:00 AM EDT PACE Home Care / PACE Home Visit [facility] [place] [facility] [address] [place] [phone] Nurse, Tomasa 11/30/2024 7:00 AM EDT PACE Home Care / [facility] [address] [place] [phone] Nurse, Tomasa 12/01/2024 6:00 AM EDT PACE Home Care / [facility] [address] [place] [address] Mendy Hodge 12/02/2024 6:30 AM EDT PACE Home Care / [facility] [address] [place] [address] Nurse, Tomasa 12/03/2024 6:30 AM EDT PACE Home Care / [facility] [address] [place] [address] Nurse, Tomasa 12/04/2024 9:00 AM EDT PACE Home Care / [facility] [place] [facility] [address] [place] [phone] Nurse, Tomasa 12/05/2024 7:00 AM EDT PACE Home Care / [facility] [place] [facility] [address] [place] [phone] Nurse, Tomasa 12/06/2024 7:00 AM EDT PACE Home Care / [facility] [address] [place] [phone] Nurse, Tomasa 12/07/2024 7:00 AM EDT PACE Home Care / [facility] [address] [place] [phone] Nurse, Tomasa 12/08/2024 6:00 AM EDT PACE Home Care / [facility] [address] [place] [phone] Mendy Hodge 12/09/2024 6:30 AM EDT PACE Home Care / [facility] [address] [place] [phone] Feroz Horner 12/10/2024 6:30 AM EDT PACE Home Care / [facility] Visit [facility] [place] [facility] [address] [place] [phone] Teodora Ricks 12/11/2024 9:00 AM EDT PACE Home Care / [facility] [place] [facility] [address] [place] [address] Nurse, Tomasa 12/12/2024 7:00 AM EDT PACE Home Care / [facility] Visit [facility] [place] [facility] [address] [place] [address] Nurse, Tomasa 12/13/2024 7:00 AM EDT PACE Home Care / [facility] [address] [place] [phone] Nurse, Tomasa 12/14/2024 7:00 AM EDT PACE Home Care / [facility] Visit [facility] [address] [place] [phone] Feroz Horner 12/15/2024 6:00 AM EDT PACE Home Care / [facility] Home Visit [facility] [address] [place] [phone] Mendy Hodge 12/16/2024 6:30 AM EDT PACE Home Care / [facility] Visit [facility] [place] [facility] [address] [place] [phone] Nurse, Toamsa 12/17/2024 6:30 AM EDT PACE Home Care / [facility] [place] [facility] [address] [place] [phone] Nurse, Tomasa 12/18/2024 9:00 AM EDT PACE Home Care / [facility] [address] [place] [phone] Nurse, Tomsaa 12/19/2024 7:00 AM EDT PACE Home Care / [facility] [address] [place] [phone] Nurse, Tomasa 12/20/2024 7:00 AM EDT PACE Home Care / [facility] [place] [facility] [address] [place] [address] Nurse, Tomasa 12/20/2024 10:00 AM EDT Office Visit [facility] - [place] [address] [phone] Talia Ang NP [address] [address] 12/21/2024 7:00 AM EDT PACE Home Care / PACE Home Visit [facility] [address] [place] [address] Nurse, Tomasa 12/22/2024 6:00 AM EDT PACE Home Care / PACE Home Visit [facility] [address] [place] [address] Mendy Hodge 12/23/2024 6:30 AM EDT PACE Home Care / PACE Home Visit [facility] [address] [place] [address] Feroz Horner 01/23/2025 11:00 AM EDT Appointment [facility] Ultrasound [address] [place] [address] 03/05/2025 11:00 AM EDT PACE External Visit A[facility]ne [facility] [place] [address] [place] [address] documented as of this encounter Visit Diagnoses Not on filedocumented in this encounter Care Teams Fraud Prevention Analyst Relationship Specialty Start Date End Date Anali Mccabe NP 200 [facility] [address] [place] [address] PCP - General Family Medicine 05/26/24 documented as of this encounter
--- OUTSIDE RECORDS SUMMARY | 2024-11-22 11:06 | XMS_ITS | Encounter Summary ---
Author Organization [facility] Address [address] [place] [address] Care Team Providers Care Federal Mediation Commissioner Name Role Phone Anali Mccabe REED MAN Primary Care Provider [phone] Encounter Details Date Type Department Care Team (Late st Contact Info) Description 11/20/2024 9:00 AM EDT PACE Home Care / PACE Home Visit Arianne [facility] [address] [place] [phone] Tomasa Patel Social History Tobacco Use [...] [facility] [address] [place] [phone] Tomasa Patel 11/24/2024 6:00 AM EDT PACE Home Care / PACE Home Visit Arianne [facility] [address] [place] [phone] Mendy Hodge 11/24/2024 10:00 AM EDT Office Visit [facility] [place] [facility] [address] [place] [address] Anali Mccabe, ROCIO [address] [address] 11/25/2024 6:30 AM EDT PACE Home Care / PACE Home Visit [facility] [address] [place] [address] Feroz Horner 11/26/2024 6:30 AM EDT PACE Home Care / PACE Home Visit [facility]ne [facility] [address] [place] [address] Teodora Ricks 11/27/2024 9:00 AM EDT PACE Home Care / PACE Home Visit [facility] [address] [place] [address] Nurse, Tomasa 11/28/2024 7:00 AM EDT PACE Home Care / PACE Home Visit A[facility]ne [facility] [address] [place] [phone] Nurse, Tomasa 11/29/2024 7:00 AM EDT PACE Home Care / PACE Home Visit [facility] [address] [place] [phone] Nurse, Tomasa 11/30/2024 7:00 AM EDT PACE Home Care / [facility] [address] [place] [phone] Nurse, Tomasa 12/01/2024 6:00 AM EDT PACE Home Care / [facility] [address] [place] [address] Mendy Hodge 12/02/2024 6:30 AM EDT PACE Home Care / [facility] Visit [facility] [address] [place] [address] Nurse, Tomasa 12/03/2024 6:30 AM EDT PACE Home Care / [facility] Home Visit [facility] [address] [place] [address] Nurse, Tomasa 12/04/2024 9:00 AM EDT PACE Home Care / [facility] Home Visit [facility] [place] [facility] [address] [place] [phone] Nurse, Tomasa 12/05/2024 7:00 AM EDT PACE Home Care / [facility] Home Visit [facility] [place] [facility] [address] [place] [phone] Nurse, Tomasa 12/06/2024 7:00 AM EDT PACE Home Care / [facility] Home Visit [facility] [address] [place] [phone] Nurse, Tomasa 12/07/2024 7:00 AM EDT PACE Home Care / [facility] Home Visit [facility] [place] [facility] [address] [place] [phone] Nurse, Tomasa 12/08/2024 6:00 AM EDT PACE Home Care / [facility] Home Visit [facility] [address] [place] [phone] Mendy Hodge 12/09/2024 6:30 AM EDT PACE Home Care / [facility] Home Visit [facility] [address] [place] [phone] Feroz Horner 12/10/2024 6:30 AM EDT PACE Home Care / [facility] Visit [facility] [place] [facility] [address] [place] [phone] Teodora Ricks 12/11/2024 9:00 AM EDT PACE Home Care / [facility] Visit [facility] [place] [facility] [address] [place] [phone] Nurse, Tomasa 12/12/2024 7:00 AM EDT PACE Home Care / [facility] Home Visit [facility] [place] [facility] [address] [place] [address] Nurse, Tomasa 12/13/2024 7:00 AM EDT PACE Home Care / [facility] Visit [facility] [address] [place] [phone] Nurse, Tomasa 12/14/2024 7:00 AM EDT PACE Home Care / [facility] Visit [facility] [place] [facility] [address] [place] [phone] Feroz Horner 12/15/2024 6:00 AM EDT PACE Home Care / [facility] Visit [facility] [place] [facility] [address] [place] [phone] Mendy Hodge 12/16/2024 6:30 AM EDT PACE Home Care / [facility] Visit [facility] [address] [place] [phone] Nurse, Tomasa 12/17/2024 6:30 AM EDT PACE Home Care / [facility] Visit [facility] [place] [facility] [address] [place] [phone] Nurse, Tomasa 12/18/2024 9:00 AM EDT PACE Home Care / [facility] Visit [facility] [place] [facility] [address] [place] [phone] Nurse, Tomasa 12/19/2024 7:00 AM EDT PACE Home Care / [facility] Home Visit [facility] [place] [facility] [address] [place] [phone] Nurse, Tomasa 12/20/2024 7:00 AM EDT PACE Home Care / [facility] Visit [facility] [place] [facility] [address] [place] [phone] Nurse, Tomasa 12/20/2024 10:00 AM EDT Office Visit Orthopedic Surgery - [place] [address] [phone] Talia Ang NP [address] [address] 12/21/2024 7:00 AM EDT PACE Home Care / PACE Home Visit [facility] [address] [place] [address] Nurse, Tomasa 12/22/2024 6:00 AM EDT PACE Home Care / PACE Home Visit [facility] [address] [place] [address] Mendy Hodge 12/23/2024 6:30 AM EDT PACE Home Care / PACE Home Visit Arianne [facility] [address] [place] [address] Feroz Horner 01/23/2025 11:00 AM EDT Appointment [facility] Ultrasound [address] [place] [address] 03/05/2025 11:00 AM EDT PACE External Visit [facility]rianne [facility]MA [place] [address] [place] [address] documented as of this encounter Visit Diagnoses Not on filedocumented in this encounter Care Teams Federal Mediation Commissioner Relationship Specialty Start Date End Date Anali Mccabe NP 200 [facility] 1 [place] [address] PCP - General Family Medicine 05/26/24 documented as of this encounter
== END 2024-11-22 11:21 | disposition home or self-care (01) ==
LOC: HO.HSMS 10:00
PROVIDERS: PCP Internal Medicine Rheumatology; Visit Provider Psychiatry & Neurology Neurology
DX: G20.C Parkinsonism, unspecified (principal); G24.01 Drug induced subacute dyskinesia
CPT/HCPCS: 99204; G2211

== ENCOUNTER → 2024-11-22 09:59 | Outpatient (BNVA) | payer OTHER, SELFPAY | PROVIDERS: PCP Internal Medicine Rheumatology; Visit Provider Psychiatry & Neurology Neurology | DX: G20.C Parkinsonism, unspecified (principal); G24.01 Drug induced subacute dyskinesia | CPT/HCPCS: 99202 ==

== ENCOUNTER 2025-01-23 15:31 | Outpatient (AMB) | payer OTHER, SELFPAY ==
--- OUTSIDE RECORDS SUMMARY | 2025-01-19 07:00 | XMS_ITS | Encounter Summary ---
Author Organization [facility] Address [address] [place] [address] Care Team Providers Care Extension Course Counselor Name Role Phone MccabeAnali savage Radhika BREWING TECHNICIAN Primary Care Provider [phone] Encounter Details Date Type Department Care Team (Late st Contact Info) Description 01/19/2025 7:00 AM EDT PACE Home Care / PACE Home Visit Arianne LERMA [facility] [address] [place] [phone] Feroz Horner Social History Tobacco Use Types Packs/Day Years [...] Care Team (Late st Contact Info) Description 01/24/2025 6:30 AM EDT PACE Home Care / PACE Home Visit Arianne LERMA [facility] [address] [place] [phone] Teodora Ricks 01/25/2025 6:30 AM EDT PACE Home Care / PACE Home Visit [facility]rianne L[facility]MA [facility] [address] [place] [phone] Feroz Horner 01/25/2025 11:00 AM EDT Treatment Arianne LERMA MA Occupational Therapy [address] [place] [phone] Caitlin Feliz COTA 01/26/2025 6:00 AM EDT PACE Home Care / PACE Home Visit [facility]rianne [facility] [place] [facility] [address] [place] [phone] Mendy Hodge 01/27/2025 8:00 AM EDT PACE Home Care / PACE Home Visit [facility]rianne [facility] [place] [facility] [address] [place] [phone] Lisa Avalos 01/28/2025 7:00 AM EDT PACE Home Care / PACE Home Visit [facility]rianne [facility] [place] [facility] [address] [place] [phone] Feroz Horner 01/29/2025 9:00 AM EDT PACE Home Care / PACE Home Visit [facility]rianne [facility] [place] [facility] [address] [place] [phone] Nurse, Tomasa 01/30/2025 7:00 AM EDT PACE Home Care / PACE Home Visit [facility]rianne [facility] [place] [facility] [address] [place] [phone] Nurse, Tomasa 01/31/2025 7:00 AM EDT PACE Home Care / PACE Home Visit [facility] [place] [facility] [address] [place] [phone] Nurse, Tomasa 01/31/2025 3:30 PM EDT Procedure visit Orthopedic Surgery - [place] [address] [phone] Wes Busch MD [address] [address] 02/01/2025 7:00 AM EDT PACE Home Care / PACE Home Visit [facility]rianne [facility] [address] [place] [phone] Nurse, Tomasa 02/02/2025 7:30 AM EDT PACE Home Care / PACE Home Visit Arianne [facility] [place] [facility] [address] [place] [phone] Feroz Horner 02/03/2025 6:30 AM EDT PACE Home Care / PACE Home Visit Arianne [facility] [place] [facility] [address] [place] [phone] Feroz Horner 02/04/2025 7:30 AM EDT PACE Home Care / PACE Home Visit Arianne [facility] [place] [facility] [address] [place] [phone] Teodora Ricks 02/05/2025 9:00 AM EDT PACE Home Care / PACE Home Visit [facility]rianne [facility] [place] [facility] [address] [place] [phone] Nurse, Tomasa 02/06/2025 7:00 AM EDT PACE Home Care / PACE Home Visit [facility]rianne [facility] [place] [facility] [address] [place] [phone] Nurse, Tomasa 02/07/2025 7:00 AM EDT PACE Home Care / PACE Home Visit [facility] [place] [facility] [address] [place] [phone] Nurse, Tomasa 02/07/2025 1:30 PM EDT Procedure visit Orthopedic Surgery - [address] [place] [phone] Talia Ang NP [address] [address] 02/08/2025 7:00 AM EDT PACE Home Care / PACE Home Visit Arianne [facility]ERMA [place] [facility] [address] [place] [phone] Nurse, Tomasa 02/09/2025 7:30 AM EDT PACE Home Care / PACE Home Visit [facility]rian[facility] [place] [facility] [address] [place] [phone] Feroz Horner 02/10/2025 6:30 AM EDT PACE Home Care / PACE Home Visit Arianne [facility] [address] [place] [phone] Nurse, Tomasa 02/11/2025 6:30 AM EDT PACE Home Care / PACE Home Visit Arianne [facility] [place] [facility] [address] [place] [phone] Nurse, Tomasa 02/12/2025 9:00 AM EDT PACE Home Care / PACE Home Visit Arianne [facility] [place] [facility] [address] [place] [phone] Nurse, Tomasa 02/13/2025 7:00 AM EDT PACE Home Care / PACE Home Visit Arianne [facility] [address] [place] [phone] Nurse, Tomasa 02/14/2025 7:00 AM EDT PACE Home Care / PACE Home Visit [facility]rianne [facility] [place] [facility] [address] [place] [phone] Nurse, Tomasa 02/14/2025 2:45 PM EDT Procedure visit Orthopedic Surgery - [place] [address] [place] [address] [place] [phone] Talia Ang NP [address] [address] 02/15/2025 7:00 AM EDT PACE Home Care / PACE Home Visit Arianne LERMA [facility] [address] [place] [phone] Nurse, Tomasa 02/16/2025 7:30 AM EDT PACE Home Care / [facility] Home Visit [facility] [place] [facility] [address] [place] [phone] Feroz Horner 02/17/2025 6:30 AM EDT PACE Home Care / [facility] Home Visit [facility] [place] [facility] [address] [place] [phone] Feroz Horner 02/18/2025 7:30 AM EDT PACE Home Care / [facility] Home Visit [facility] [place] [facility] [address] [place] [phone] Teodora Ricks 02/19/2025 9:00 AM EDT PACE Home Care / [facility] Home Visit [facility] [place] [facility] [address] [place] [phone] Nurse, Tomasa 02/20/2025 7:00 AM EDT PACE Home Care / [facility] Home Visit [facility] [place] [facility] [address] [place] [phone] Nurse, Tomasa 02/21/2025 7:00 AM EDT PACE Home Care / [facility] Home Visit [facility] [place] [facility] [address] [place] [phone] Nurse, Tomasa 02/22/2025 7:00 AM EDT PACE Home Care / [facility] Home Visit [facility] [place] [facility] [address] [place] [phone] Nurse, Tomasa 02/23/2025 7:30 AM EDT PACE Home Care / [facility] Home Visit [facility] [place] [facility] [address] [place] [phone] Feroz Horner 02/24/2025 6:30 AM EDT PACE Home Care / [facility] Home Visit [facility] [place] [facility] [address] [place] [phone] Nurse, Tomasa 02/25/2025 6:30 AM EDT PACE Home Care / [facility] Home Visit [facility] [place] [facility] [address] [place] [phone] Nurse, Tomasa 02/26/2025 9:00 AM EDT PACE Home Care / PACE Home Visit Arianne LERMA [place] [facility] [address] [place] [phone] Nurse, Tomasa 02/27/2025 7:00 AM EDT PACE Home Care / PACE Home Visit Arianne [facility] [place] [facility] [address] [place] [phone] Nurse, Tomasa 02/28/2025 7:00 AM EDT PACE Home Care / PACE Home Visit [facility] [place] [facility] [address] [place] [phone] Nurse, Tomasa 02/28/2025 10:00 AM EDT Office Visit [facility] [address] [place] [phone] Madhuri Denis MD [address] [place] [phone] 03/01/2025 7:00 AM EDT PACE Home Care / PACE Home Visit Arianne [facility] [address] [place] [phone] Nurse, Tomasa 03/02/2025 7:30 AM EDT PACE Home Care / PACE Home Visit Arianne [facility] [place] [facility] [address] [place] [phone] Feroz Horner 03/03/2025 6:30 AM EDT PACE Home Care / PACE Home Visit Arianne [facility] [address] [place] [phone] Feroz Horner 03/04/2025 7:30 AM EDT PACE Home Care / PACE Home Visit Arianne [facility] [place] [facility] [address] [place] [phone] Teodora Ricks 03/05/2025 9:00 AM EDT PACE Home Care / [facility] Home Visit [facility] [place] [facility] [address] [place] [phone] Nurse, Tomasa 03/05/2025 11:00 AM EDT PACE External Visit [facility] [place] [address] [place] [phone] 03/06/2025 7:00 AM EDT PACE Home Care / [facility] Home Visit [facility] [place] [facility] [address] [place] [phone] Nurse, Tomasa 03/07/2025 7:00 AM EDT PACE Home Care / [facility] Home Visit [facility] [place] [facility] [address] [place] [phone] Nurse, Tomasa 03/08/2025 7:00 AM EDT PACE Home Care / [facility] Home Visit [facility] [place] [facility] [address] [place] [phone] Nurse, Tomasa 03/09/2025 7:30 AM EDT PACE Home Care / [facility] Home Visit [facility] [place] [facility] [address] [place] [phone] Feroz Horner 03/10/2025 6:30 AM EDT PACE Home Care / [facility] Home Visit [facility] [place] [facility] [address] [place] [phone] Nurse, Tomasa 03/11/2025 6:30 AM EDT PACE Home Care / [facility] Home Visit [facility] [place] [facility] [address] [place] [phone] Nurse, Tomasa 03/12/2025 9:00 AM EDT PACE Home Care / [facility] Home Visit [facility] [place] [facility] [address] [place] [phone] Nurse, Tomasa 03/13/2025 7:00 AM EDT PACE Home Care / [facility] Home Visit [facility] [place] [facility] [address] [place] [phone] Nurse, Tomasa 03/14/2025 7:00 AM EDT PACE Home Care / [facility] Home Visit [facility] [place] [facility] [address] [place] [phone] Nurse, Tomasa 03/15/2025 7:00 AM EDT PACE Home Care / [facility] Home Visit [facility] [place] [facility] [address] [place] [phone] Nurse, Tomasa 03/16/2025 7:30 AM EDT PACE Home Care / [facility] Home Visit [facility] [place] [facility] [address] [place] [phone] Feroz Horner 03/17/2025 6:30 AM EDT PACE Home Care / [facility] Home Visit [facility] [place] [facility] [address] [place] [phone] Feroz Horner 03/18/2025 7:30 AM EDT PACE Home Care / PACE Home Visit [facility] [place] [facility] [address] [place] [phone] Teodora Ricks 03/19/2025 9:00 AM EDT PACE Home Care / [facility] Home Visit [facility] [place] [facility] [address] [place] [phone] Nurse, Tomasa 03/20/2025 7:00 AM EDT PACE Home Care / [facility] Home Visit [facility] [place] [facility] [address] [place] [phone] Nurse, Tomasa 03/21/2025 7:00 AM EDT PACE Home Care / [facility] Home Visit [facility] [place] [facility] [address] [place] [phone] Nurse, Tomasa 03/22/2025 7:00 AM EDT PACE Home Care / [facility] Home Visit [facility] [place] [facility] [address] [place] [phone] Tomasa Patel 03/23/2025 7:30 AM EDT PACE Home Care / PACE Home Visit [facility]rianne [facility] [address] [place] [phone] Feroz Horner 03/24/2025 6:30 AM EDT PACE Home Care / PACE Home Visit [facility]rianne [facility] [address] [place] [phone] NurseTomasa documented as of this encounter Visit Diagnoses Not on filedocumented in this encounter Care Teams Extension Course Counselor Relationship Specialty Start Date End Date Anali Mccabe NP [address] [place] [phone] PCP - General Family Medicine 05/26/24 documented as of this encounter
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
[2025-01-23 15:33] VITALS: BP 130/72; PULSE 79; O2SAT 96; BMI 36.7
--- OUTSIDE RECORDS SUMMARY | 2025-01-23 15:58 | XMS_ITS | Patient Health Record ---
Author Organization [facility] Address [address] [place] [address] Care Team Providers Care Forming Machine Upkeep Mechanic Name Role Phone Maggie Salas Unavailable [phone] Reason For Referral No Information Medications Medication SIG (Take, Route, Fr equency, Duration) Notes Start Date End Date Status Zoloft 50 mg 0.5TAB ORAL daily; Duration: -3 [facility] [place] Active RisperDAL 4MG ORAL; Duration: -3 [facility] [place] 12/25/2013 Active Vitamin D3 1000 IU ORAL daily; Duration: -3 [facility]- 2013 Active Wellbutrin XL 450MG ORAL daily; Duration: -3 [facility]- 12/25 Active Problems Problem Type SNOMED Code ICD Code Onset Dates Problem Status W/U Status Risk Notes Problem Submucous leiomyoma of uterus (97273624) Submucous leiomyoma of uterus (218.0) Active confirmed Diag Problem Depressive disorder (65814270) Depressive disorder, not elsewhere classified (311) Active confirmed Major Problem Excessive and frequent menstruation (634200577) Excessive or frequent menstruation (626.2) Active confirmed Diag Problem Irregular menstrual cycle (21532785) Irregular menstrual cycle (626.4) Active confirmed Diag Problem Postmenopausal bleeding (13320754) Postmenopausal bleeding (627.1) Active confirmed Diag Plan Of Treatment No Information Insurance Providers Payer Name Payer Address Payer Phone Subscriber Number Group Number Insured Name Patient Relationship to Insured Coverage Start Date Coverage End Date MEDICARE [address] [place] [id number] RAMON HENSON Self - patient is the insured
== END 2025-01-23 15:50 | disposition home or self-care (01) ==
LOC: HO.HSMS 15:32
PROVIDERS: PCP Internal Medicine Rheumatology; Visit Provider Psychiatry & Neurology Neurology
DX: G20.C Parkinsonism, unspecified (principal); G24.01 Drug induced subacute dyskinesia
CPT/HCPCS: 99214

== ENCOUNTER → 2025-01-23 15:31 | Outpatient (BNVA) | payer OTHER, SELFPAY | PROVIDERS: PCP Internal Medicine Rheumatology; Visit Provider Psychiatry & Neurology Neurology | DX: G20.C Parkinsonism, unspecified (principal); G24.01 Drug induced subacute dyskinesia | CPT/HCPCS: 99212 ==

== ENCOUNTER 2025-06-06 10:30 | Outpatient (AMB) | payer OTHER, SELFPAY ==
[2025-06-06 10:43] VITALS: BP 120/70; PULSE 76; O2SAT 96; BMI 37.1
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
--- OUTSIDE RECORDS SUMMARY | 2025-06-06 20:26 | XMS_ITS | Patient Health Record ---
Author Organization [facility] Address [address] [place] [address] Care Team Providers Care Air Antisubmarine Officer Name Role Phone Maggie Salas Unavailable [phone] Reason For Referral No Information Medications Medication SIG (Take, Route, Fr equency, Duration) Notes Start Date End Date Status Zoloft 50 mg 0.5TAB ORAL daily; Duration: -3 [facility]- 12/25 Active RisperDAL 4MG ORAL; Duration: -3 [facility]- 12/25/2013 Active Vitamin D3 1000 IU ORAL daily; Duration: -3 [facility]- 2013 Active Wellbutrin XL 450MG ORAL daily; Duration: -3 [facility]- 12/25 Active Problems Problem Type SNOMED Code ICD Code Onset Dates Problem Status W/U Status Risk Notes Problem Submucous leiomyoma of uterus (02040952) Submucous leiomyoma of uterus (218.0) Active confirmed Diag Problem Depressive disorder (43280122) Depressive disorder, not elsewhere classified (311) Active confirmed Major Problem Excessive and frequent menstruation (330287576) Excessive or frequent menstruation (626.2) Active confirmed Diag Problem Irregular menstrual cycle (65958098) Irregular menstrual cycle (626.4) Active confirmed Diag Problem Postmenopausal bleeding (11732253) Postmenopausal bleeding (627.1) Active confirmed Diag Plan Of Treatment No Information Insurance Providers Payer Name Payer Address Payer Phone Subscriber Number Group Number Insured Name Patient Relationship to Insured Coverage Start Date Coverage End Date MEDICARE [address] [place] [id number] RAMON HENSON Self - patient is the insured
== END 2025-06-06 11:15 | disposition home or self-care (01) ==
LOC: HO.HSMS 10:31
PROVIDERS: PCP Internal Medicine Rheumatology; Visit Provider Psychiatry & Neurology Neurology
DX: G20.C Parkinsonism, unspecified (principal); G24.01 Drug induced subacute dyskinesia
CPT/HCPCS: 99214; G2211

== ENCOUNTER → 2025-06-06 10:30 | Outpatient (BNVA) | payer OTHER, SELFPAY | PROVIDERS: PCP Internal Medicine Rheumatology; Visit Provider Psychiatry & Neurology Neurology | DX: G20.C Parkinsonism, unspecified (principal); G24.01 Drug induced subacute dyskinesia | CPT/HCPCS: 99212 ==